=== PATIENT | female | born 1990 | race Caucasian/White ===

== ENCOUNTER 2017-09-24 02:07 | Emergency (ER) | payer OTHER ==
[~2017-09-24] VITALS: Ht 160 cm; Wt 81.7 kg
[2017-09-24] MEDS ORDERED: LEXAPRO10 MG PO (02:30)
--- NOTE | 2017-09-24 08:14 | EKG ---
[facility] [address] [facility] [place] [address] Signed Normal sinus rhythm Normal ECG No previous ECGs available Confirmed by GOYO HACKETT MD [id number] on 09/24/2017 8:13:57 AM Electronically Signed By: GOYO HACKETT MD 09/24/17 0814 PATIENT NAME: LAZAROFABIENNE Christie Electrocardiogram DATE OF : 89 PHYSICIAN: GOYO HACKETT MD REPORT #: [id number] REPORT IS CONFIDENTIAL AND NOT TO BE RELEASED WITHOUT AUTHORIZATION
== END 2017-09-24 04:35 | disposition home or self-care (01) ==
LOC: ED 02:07
DX: T14.91XA Suicide attempt, initial encounter (principal); F32.9 Major depressive disorder, single episode, unspecified; Z79.899 Other long term (current) drug therapy
CPT/HCPCS: 36415; 80053; 80176; 81001; 84443; 84703; 85025; 93005; 93010; 99284; G0480